=== PATIENT | female | born 1995 | race Caucasian/White ===

== ENCOUNTER 2017-04-13 10:48 | Inpatient (IN) ==
[2017-04-13] MEDS ORDERED: SODIUM CHLORIDE 0.9% 1,000 ML IV STA (11:15)
[2017-04-13] MEDS ORDERED: ONDANSETRON 4 MG/2 ML VIAL IV STA (11:15)
[2017-04-13 11:36] LABS: Basophils % 0.4 % (0.0-0.8); Eosinophils # 0.2 10*3/uL (0.0-0.87); Eosinophils % 2.5 % (0.00-10.9); Hematocrit 39.3 VOL% (35.7-47.0); Hemoglobin 13.4 GM/DL (12.0-16.0); Immature Granulocytes % 0.3 %; Immature Granulocytes Absolute 0.02 #; Lymphocytes # 2.6 10*3/uL (1.4-4.0); Lymphocytes % 32.1 % (21.3-54.2); Mean Corpuscular HGB Conc 34.1 GM/DL (32-36); Mean Corpuscular Hemoglobin 30 PG (27-34); Mean Corpuscular Volume 87.9 FL (87-102); Mean Platelet Volume 13.3 FL (9.6-12.0); Monocytes # 0.5 10*3/uL (0.11-0.8); Monocytes % 5.8 % (1.7-12.7); Neutrophils # 4.7 10*3/uL (1.4-7.4); Neutrophils % 58.9 % (38.7-73.9); Platelet Count 151 T/CUMM (130-400); Red Blood Count 4.47 MC/CUMM (3.8-5.5)
[2017-04-13 11:36] LABS: Apearance,Urine CLEAR (Clear); Bilirubin,Urine Negative (Negative); Blood, Urine Negative (Negative); Glucose,Urine (UA) Negative (Negative); Ketones,Urine Negative (Negative); Mucus,Urine Occasional /LPF (Occasional); Nitrite,Urine Negative (Negative); Protein,Urine Negative; RBC,Urine <1 /HPF (0-4); Squamous Epithelial Cell,Urine Occasional /HPF (0-10); Urine Color Straw (Yellow); Urine Specific Gravity 1.011 (1.001-1.035); Urine Urobilinogen < 2.0 EU/DL (0.2-1.0); WBC,Urine <1 /HPF (0-6)
[2017-04-13 12:09] LABS: Albumin 3.4 G/DL (3.4-5.0); Bilirubin,Total 0.6 MG/DL (0.2-1.0); Calcium 8.7 MG/DL (8.5-10.1); Osmolality,Calculated 279.1 MOS/KG (273-304); Potassium 4.6 MMOL/L (3.5-5.1); Total Protein 6.9 G/DL (6.4-8.3)
[2017-04-13] MEDS ORDERED: HYDROmorphone 2 MG/1 ML VIAL IV PRN (16:45)
[2017-04-13] MEDS ORDERED: LACTATED RINGERS 1,000 ML IV SCH (16:45)
[2017-04-13] MEDS ORDERED: ONDANSETRON 4 MG/2 ML VIAL IV PRN (16:45)
[2017-04-13] MEDS ORDERED: ACETAMINOPHEN 325 MG TABLET PO PRN ×2 (16:45)
[2017-04-13] MEDS: cefOXitin 2,000 MG in SYRINGE 1 EACH IV SCH ×2 (18:13→23:11)
[2017-04-13] MEDS: LACTATED RINGERS 1,000 ML IV SCH (18:13)
[2017-04-13] MEDS: PIPERACILLIN/TAZOBACTAM 3,375 MG in SODIUM CHLORIDE 0.9% 100 ML IV SCH (18:45)
[2017-04-13] MEDS: ONDANSETRON 4 MG/2 ML VIAL IV PRN (22:01)
[2017-04-14] MEDS: PIPERACILLIN/TAZOBACTAM 3,375 MG in SODIUM CHLORIDE 0.9% 100 ML IV SCH ×3 (01:02→17:35)
[2017-04-14 04:52] LABS: Basophils % 0.2 % (0.0-0.8); Eosinophils # 0.2 10*3/uL (0.0-0.87); Eosinophils % 2.8 % (0.00-10.9); Hematocrit 39.4 VOL% (35.7-47.0); Hemoglobin 12.7 GM/DL (12.0-16.0); Immature Granulocytes % 0.2 %; Immature Granulocytes Absolute 0.02 #; Lymphocytes % 35.2 % (21.3-54.2); Mean Corpuscular HGB Conc 32.2 GM/DL (32-36); Mean Corpuscular Hemoglobin 29 PG (27-34); Mean Corpuscular Volume 90.2 FL (87-102); Monocytes # 0.5 10*3/uL (0.11-0.8); Monocytes % 6.1 % (1.7-12.7); Neutrophils # 4.8 10*3/uL (1.4-7.4); Neutrophils % 55.5 % (38.7-73.9); Platelet Count 146 T/CUMM (130-400); Red Blood Count 4.37 MC/CUMM (3.8-5.5); Red Cell Distribution Width 13.8 % (9.3-17.3); White Blood Count 8.6 T/CUMM (4-12)
[2017-04-14] MEDS: cefOXitin 2,000 MG in SYRINGE 1 EACH IV SCH ×3 (05:07→19:39)
[2017-04-14] MEDS ORDERED: PANTOPRAZOLE 40 MG TABLET PO SCH (09:00)
[2017-04-14] MEDS ORDERED: TISSUE ADHESIVE 1 EACH APPLICATOR TOP ONE (09:03)
[2017-04-14] MEDS ORDERED: BUPIVACAINE 0.25% 50 ML VIAL ONE (09:03)
[2017-04-14] MEDS ORDERED: ONDANSETRON 4 MG/2 ML VIAL IV PRN (09:47)
[2017-04-14] MEDS: HYDROmorphone 2 MG/1 ML VIAL IV PRN ×2 (09:50→10:03)
[2017-04-14] MEDS: PANTOPRAZOLE 40 MG TABLET PO SCH (10:26)
[2017-04-14] MEDS: LACTATED RINGERS 1,000 ML IV SCH ×2 (10:27→16:17)
[2017-04-14] MEDS ORDERED: SEVOFLURANE 1 UNIT/15 MINUTE INH ONE (13:14)
[2017-04-14] MEDS ORDERED: GLYCOPYRROLATE 0.4 MG/2 ML VIAL ONE (13:14)
[2017-04-14] MEDS ORDERED: ONDANSETRON 4 MG/2 ML VIAL ONE (13:14)
[2017-04-14] MEDS ORDERED: fentaNYL 100 MCG/2 ML VIAL ONE (13:14)
[2017-04-14] MEDS ORDERED: MIDAZOLAM 2 MG/2 ML VIAL ONE (13:14)
[2017-04-14] MEDS ORDERED: PROPOFOL 200 MG/20 ML VIAL IV ONE (13:14)
[2017-04-14] MEDS ORDERED: KETOROLAC 30 MG/1 ML VIAL ONE (13:14)
[2017-04-14] MEDS ORDERED: SUCCINYLCHOLINE 200 MG/10 ML VIAL ONE (13:15)
[2017-04-14] MEDS ORDERED: NEOSTIGMINE 10 MG/10 ML VIAL ONE (13:15)
[2017-04-14] MEDS ORDERED: ROCURONIUM 100 MG/10 ML VIAL IV ONE (13:15)
[2017-04-14] MEDS ORDERED: ACETAMINOPHEN 1,000 MG/100 ML VIAL IV ONE (13:15)
[2017-04-14] MEDS: SIMETHICONE CHEW 80 MG TABLET PO PRN (16:17)
[2017-04-15] MEDS: SIMETHICONE CHEW 80 MG TABLET PO PRN (00:44)
[2017-04-15] MEDS: cefOXitin 2,000 MG in SYRINGE 1 EACH IV SCH ×2 (00:45→08:28)
[2017-04-15] MEDS: PIPERACILLIN/TAZOBACTAM 3,375 MG in SODIUM CHLORIDE 0.9% 100 ML IV SCH ×2 (00:51→10:56)
[2017-04-15] MEDS: LACTATED RINGERS 1,000 ML IV SCH ×2 (06:38→08:28)
[2017-04-15] MEDS: PANTOPRAZOLE 40 MG TABLET PO SCH (08:29)
[2017-04-15] MEDS: ONDANSETRON 4 MG/2 ML VIAL IV PRN (09:48)
[2017-04-15 11:06] VITALS: BP 130/70
== END 2017-04-15 13:15 | disposition home or self-care (01) | DRG 343 ==
LOC: N.ED 10:48 → N.EDINP 15:01 → N.3E 15:22
PROVIDERS: ADMIT Surgery; ATTEND Surgery